=== PATIENT | female | born 1960 | race Caucasian/White ===

== ENCOUNTER → 2017-03-21 | Outpatient (CLI) | payer MEDICARE, OTHER ==
--- NOTE | 2017-03-21 13:11 | RAD ---
Calcaneus radiograph 2 view 03/21/2017 Clinical indication: Left heel pain for 2 days. Comparison: None. Findings: No acute fracture or traumatic malalignment. Minimal spurring at the origin of the plantar fascia on the calcaneus and enthesophyte formation at the insertion of the Achilles. Impression: No acute osseous abnormality.
== END | disposition home or self-care (01) ==
LOC: DXRADRC 08:34
PROVIDERS: ATTEND Physician Assistant Medical
DX: M79.672 Pain in left foot (principal)
CPT/HCPCS: 73650

== ENCOUNTER → 2017-03-21 | Outpatient (CLI) | payer MEDICARE, OTHER ==
--- NOTE | 2017-03-21 13:48 | RAD ---
Left lower extremity Doppler 03/21/2017 Clinical indication: Left lower leg are straddling and hard tender superficial vein medial thigh to medial knee. Comparison: None. Findings: Serial graded compression of the left lower extremity veins were performed with color Doppler imaging, augmentation and evaluation for spontaneous flow. Left common femoral, visualized greater saphenous, femoral, deep femoral, and popliteal veins are widely patent. Calf vein survey is unremarkable. In the area of interest at the medial left thigh, there is an occlusive filling defect in a superficial vein with increased echogenicity adjacent to the thrombosed vein. Impression: Completely occlusive clot in a superficial vein at the area of interest in the medial left knee with mild adjacent increased echogenicity may represent superficial thrombophlebitis.
== END | disposition home or self-care (01) ==
LOC: US 09:53
PROVIDERS: ATTEND Physician Assistant Medical
DX: M79.605 Pain in left leg (principal); M79.89 Other specified soft tissue disorders
CPT/HCPCS: 93971

== ENCOUNTER → 2017-08-02 | Outpatient (CLI) | payer MEDICARE, OTHER ==
--- NOTE | 2017-08-02 16:00 | RAD ---
Indication: Neck pain. No known injury. Technique: Cervical spine series contains 4 images. No comparison is available. Findings: There is no fracture. There is negligible anterolisthesis at C4-C5 and C5-C6, likely degenerative. There is endplate spurring which is greatest at C6-C7. Prevertebral soft tissues are within normal limits. Facet hypertrophy is greatest at C2-C3 and C3-C4. Impression: Degenerative changes in the cervical spine. There is no acute fracture or dislocation.
== END | disposition home or self-care (01) ==
LOC: PMG 13:00
PROVIDERS: ATTEND Family Medicine
DX: M47.892 Other spondylosis, cervical region (principal)
CPT/HCPCS: 72040

== ENCOUNTER 2020-12-23 07:20 | Emergency (ER) | payer MEDICARE, OTHER ==
[~2020-12-23] VITALS: Ht 167.6 cm; Wt 90.9 kg
[2020-12-23 07:21] VITALS: BP 135/51
[2020-12-23] MEDS ORDERED: HYDR-2155 PO (07:47)
[2020-12-23] MEDS ORDERED: LIDO700A21 TP (07:47)
[2020-12-23] MEDS ORDERED: ORPH-16 PO (07:47)
--- NOTE | 2020-12-23 07:48 | PHYS DOC ---
Past History Past Medical History: CAD, High Cholesterol, Hypertension, Hypothyroid Additional Past Medical Histor: Chronic back pain Past Surgical History: Cholecystectomy Additional Past Surgical Histo: Back surgery, cardiac stents Alcohol Use: None Drug Use: None General Adult EDM: Chief Complaint: LOWER EXT PAIN HPI: HPI: 59-year-old female presents with back pain with radiation down both legs which started last night. Patient reports her pain is similar to prior however amplified. Patient describes the pain as "nerve pain ". Patient does have a history of sciatica as well. Patient reports yesterday she underwent a epidural by Dr. Júnior Black, pain management at [facility], to help with her pain however last night the pain became more severe. Reports taking a tramadol at 0200 this morning without significant improvement. Denies any loss of bowel or bladder. Denies fever or chills. Denies pain at site of the injection. Patient reports she does not currently have a pain management contract. Review of Systems: Review of Systems: Constitutional: Denies fever or chills Eyes: Denies redness or eye pain HENT: Denies nasal congestion or sore throat Respiratory: Denies cough or shortness of breath Cardiovascular: Denies chest pain or palpitations GI: Denies abdominal pain, nausea, or vomiting : Denies dysuria or hematuria Musculoskeletal: Reports back pain and bilateral lower extremity pain Integument: Denies rash or skin lesions Neurologic: Denies headache, focal weakness or sensory changes; denies loss of bowel or bladder Complete systems were reviewed and found to be within normal limits, except as documented in this note. Physical Exam: PE: Constitutional: Well developed, well nourished, uncomfortable, non-toxic appearance HENT: Normocephalic, atraumatic Eyes: Conjunctiva normal, no discharge Neck: Normal range of motion, supple Lungs & Thorax: No respiratory distress, equal chest rise and fall Skin: Warm, dry, no erythema, no rash Back: No midline tenderness, pain to right buttocks on palpation, injection site midline without surrounding erythema- no bleeding noted Extremities: Pain with straight leg raise bilaterally, bilateral PT pulses +2, no edema Neurologic: Alert and oriented X 3, normal motor function, normal sensory function, no focal deficits noted Psychologic: Affect normal, judgment normal EKG: EKG: [] Radiology/Procedures: Radiology/Procedures: [] Heart Score: C/O Chest Pain: N/A Course & Med Decision Making: Course & Med Decision Making Patient presents with HPI and physical exam consistent for acute on chronic back pain with sciatica. Patient reports her chronic pain became exacerbated after undergoing epidural yesterday from pain management. Denies loss of bowel or bladder. Wound dry and without erythema. Pain addressed. Patient stable for discharge with outpatient follow-up with PCP/pain management. Discussed findings and plan with patient and spouse, who acknowledge understanding and agreement. Martha Disclaimer: Martha Disclaimer: This electronic medical record was generated, in whole or in part, using a voice recognition dictation system. Departure Departure: Impression: Primary Impression: Acute exacerbation of chronic low back pain Additional Impression: Bilateral sciatica Disposition: HOME / SELF CARE / HOMELESS Condition: STABLE Referrals: JENI FLORES MD (PCP) Patient Instructions: Chronic Back Pain, Sciatica, [id number] Additional Instructions: Please follow closely with your film painter- Dr. Júnior Black. Address: [address] [place] [address] May also take over the counter Ibuprofen or Naproxen for pain or discomfort. Scripts Lidocaine (Lidocaine PATCH ) 1 Each Adh..patch 1 EACH TP DAILY for FOR LOCAL PAIN, #20 PATCH REMOVE AFTER 12 HOURS Prov: KOFI ANDERSON DO 12/23/20 Hydrocodone Bit/Acetaminophen (HYDROCODONE-APAP 5-325 ) 1 Each Tablet 0.5-1 TAB PO PRN Q6HRS PRN for PAIN, #10 TAB 0 Refills Prov: KOFI ANDERSON DO 12/23/20 Orphenadrine Citrate (ORPHENADRINE CITRATE) 100 Mg Tablet.er 1 TAB PO BID PRN for MUSCLE PAIN, #14 TAB 0 Refills Prov: KOFI ANDERSON DO 12/23/20 KOFI ANDERSON DO December 23, 2020 07:48
[2020-12-23] MEDS: DEXAMETHASONE 4 MG TABLET PO ONE (07:54)
[2020-12-23] MEDS: KETOROLAC 30 MG/ML VIAL. IM ONE (07:55)
[2020-12-23] MEDS: MORPHINE SULFATE 4 MG/ML DISP.SYRIN. IM ONE (07:55)
[2020-12-23] MEDS: ORPHENADRINE CITRATE 60 MG/2 ML VIAL. IM ONE (07:55)
== END 2020-12-23 08:15 | disposition home or self-care (01) ==
LOC: ER 07:20
DX: M54.42 Lumbago with sciatica, left side (principal); M54.41 Lumbago with sciatica, right side; E78.5 Hyperlipidemia, unspecified; Z90.49 Acquired absence of other specified parts of digestive tract
CPT/HCPCS: 96372; 99284; J1885; J2270; J2360; J8540